=== PATIENT | female | born 1975 | race African-American/Black ===

== ENCOUNTER 2016-10-12 22:48 | Inpatient (IN) | payer SELFPAY ==
[~2016-10-12] VITALS: Ht 165.1 cm; Wt 122.9 kg
[2016-10-12 23:15] VITALS: BP 125/76
[2016-10-12] MEDS ORDERED: Famotidine 20 MG/ 2ML VIAL IVP ONE (23:30)
[2016-10-12 23:55] LABS: APPEARANCE,URINE CLEAR; KETONES,URINE NEGATIVE (NEGATIVE); LEUKOCYTE ESTERASE ,URINE NEGATIVE (NEGATIVE); NITRITE,URINE NEGATIVE (NEGATIVE); PH,URINE 6.5 (4.5-8.0); PROTEIN,URINE NEGATIVE (NEGATIVE); UROBILINOGEN,URINE NORMAL MG/DL (0.0-1.0)
[2016-10-13] VITALS (7 sets, daily range): BP systolic 103–135; BP diastolic 55–93
[2016-10-13 00:28] LABS: BASOPHILS % (AUTO) 0.9 % (0.0-2.0); EOSINOPHILS % (AUTO) 3.6 % (0.0-3.0); LYMPHOCYTES % (AUTO) 32.1 % (20.0-45.0); MEAN CORPUSCULAR HEMOGLOBIN 26.8 PG (27.0-31.0); MEAN CORPUSCULAR HGB CONC 30.2 G/DL (32.0-36.0); MEAN CORPUSCULAR VOLUME 89 FL (80-99); MEAN PLATELET VOLUME 6.7 FL (6.5-10.1); MONOCYTES % (AUTO) 7.2 % (1.0-10.0); NEUTROPHILS % (AUTO) 56.3 % (45.0-75.0); PLATELET COUNT 256 K/UL (150-450); RED BLOOD COUNT 3.94 M/UL (4.20-5.40); RED CELL DISTRIBUTION WIDTH 17.5 % (11.6-14.8); WHITE BLOOD COUNT 6.7 K/UL (4.8-10.8)
[2016-10-13 00:29] LABS: PROTHROMBIN TIME 10.1 SEC (9.30-11.50)
[2016-10-13 00:37] LABS: ALANINE AMINOTRANSFERASE 10 U/L (3-33); ALBUMIN/GLOBULIN RATIO 0.9 (1.0-2.7); ANION GAP 14 (5-15); ASPARTATE AMINO TRANSFERASE 14 U/L (5-40); CALCIUM 9.2 mg/dL (8.6-10.2); CARBON DIOXIDE 24 mEQ/L (20-30); CHLORIDE 102 mEQ/L (98-107); GLOMERULAR FILTRATION RATE > 60 mL/min (>60); HEMOLYSIS 7; LIPASE 14 U/L (< 60); POTASSIUM 4.2 mEQ/L (3.4-4.9); SODIUM 140 mEQ/L (135-145); TOTAL PROTEIN 7.5 g/dL (6.6-8.7)
[2016-10-13] MEDS ORDERED: Lidocaine 1% Plain 30 ml INJ ONE (01:07)
[2016-10-13] MEDS ORDERED: Morphine Sulfate 4mg/ml Inj IVP ONE (02:30)
[2016-10-13] MEDS ORDERED: Pantoprazole Inj IVP ONE (02:30)
--- NOTE | 2016-10-13 03:47 | Emergency Room Report ---
History of Present Illness General Chief Complaint: Gastrointestinal Bleed Source: Patient Present Illness HPI Patient is a 40-year-old female who presented after increased hematemesis. Patient had previously been having some coffee-ground emesis which had changed to a bright red. Patient had prior history of anemia as well as fibroid. Patient prior tubal ligation. Allergies: Coded Allergies: ASPIRIN (Verified Allergy, Unknown, 10/13/16) IBUPROFEN (Verified Allergy, Unknown, 10/13/16) KETOROLAC (Verified Allergy, Unknown, 10/13/16) NSAIDS (NON-STEROIDAL ANTI-INFLAMMA (Verified Allergy, Unknown, 10/12/16) PENICILLINS (Verified Allergy, Unknown, 10/13/16) SHELLFISH DERIVED (Verified Allergy, Unknown, 10/13/16) Patient History Past Medical History: see triage record Last Menstrual Period: 09/22/16 Now: No Reviewed Nursing Documentation: PMH: Agreed, PSxH: Agreed Nursing Documentation-PMH Past Medical History: No Stated History Review of Systems All Other Systems: negative except mentioned in HPI Physical Exam Vital Signs Date Time Temp Pulse Resp B/P Pulse Ox O2 Delivery O2 Flow Rate FiO2 10/12/16 23:06 98.2 86 17 122/78 100 Room Air Sp02 EP Interpretation: reviewed, normal General Appearance: normal inspection, well appearing, no apparent distress, alert, GCS 15 Head: atraumatic ENT: normal ENT inspection, hearing grossly normal, normal voice Neck: normal inspection, full range of motion, supple, no bony tend Respiratory: normal inspection, lungs clear, normal breath sounds, no respiratory distress, no retraction, no wheezing Cardiovascular #1: regular rate, rhythm, no edema Gastrointestinal: normal inspection, normal bowel sounds, non tender, soft, no guarding, no hernia Genitourinary: no CVA tenderness Musculoskeletal: normal inspection, back normal, normal range of motion Neurologic: normal inspection, alert, oriented x3, responsive, retort kiln burner III-XII nml as tested, speech normal Psychiatric: normal inspection, judgement/insight normal, mood/affect normal Skin: normal inspection, normal color, no rash Medical Decision Making Diagnostic Impression: Primary Impression: Gastrointestinal hemorrhage Additional Impression: Anemia ER Course The patient presented for hematemesis. Differential diagnosis included was not limited to Teodora-Aguillon tear, gastritis, ulcer, coagulopathy among others.Because of complexity of patient's case laboratory testing and imaging studies were ordered. The patient states that she was previously transfused. The patient was noted to have some emesis with blood appearing fluid. This did not appear to be jose blood. The patient was noted to have some evidence of anemia. Patient was noted to have poor IV access. A right internal jugular central venous catheter was placed do to inability to place other access. The patient tolerated well. Patient started on IV H2 delia as well as Protonix. Dr. Cally Kim was contacted for inpatient management Labs Test 10/12/16 23:45 10/12/16 23:50 Urine Color Pale yellow Urine Appearance Clear Urine pH 6.5 (4.5-8.0) Urine Specific [place] 1.010 (1.005-1.035) Urine Protein Negative (NEGATIVE) Urine Glucose (UA) Negative (NEGATIVE) Urine Ketones Negative (NEGATIVE) Urine Occult Blood Negative (NEGATIVE) Urine Nitrite Negative (NEGATIVE) Urine Bilirubin Negative (NEGATIVE) Urine Urobilinogen Normal MG/DL (0.0-1.0) Urine Leukocyte Esterase Negative (NEGATIVE) White Blood Count 6.7 K/UL (4.8-10.8) Red Blood Count 3.94 M/UL (4.20-5.40) Hemoglobin 10.6 G/DL (12.0-16.0) Hematocrit 35.1 % (37.0-47.0) Mean Corpuscular Volume 89 FL (80-99) Mean Corpuscular Hemoglobin 26.8 PG (27.0-31.0) Mean Corpuscular Hemoglobin Concent 30.2 G/DL (32.0-36.0) Red Cell Distribution Width 17.5 % (11.6-14.8) Platelet Count 256 K/UL (150-450) Mean Platelet Volume 6.7 FL (6.5-10.1) Neutrophils (%) (Auto) 56.3 % (45.0-75.0) Lymphocytes (%) (Auto) 32.1 % (20.0-45.0) Monocytes (%) (Auto) 7.2 % (1.0-10.0) Eosinophils (%) (Auto) 3.6 % (0.0-3.0) Basophils (%) (Auto) 0.9 % (0.0-2.0) Prothrombin Time 10.1 SEC (9.30-11.50) Prothromb Time International Ratio 1.0 (0.9-1.1) Activated Partial Thromboplast Time 28 SEC (23-33) Sodium Level 140 mEQ/L (135-145) Potassium Level 4.2 mEQ/L (3.4-4.9) Chloride Level 102 mEQ/L (98-107) Carbon Dioxide Level 24 mEQ/L (20-30) Anion Gap 14 (5-15) Blood Urea Nitrogen 14 mg/dL (7-23) Creatinine 1.0 mg/dL (0.5-0.9) Estimat Glomerular Filtration Rate > 60 mL/min (>60) Glucose Level 94 mg/dL (74-106) Calcium Level 9.2 mg/dL (8.6-10.2) Total Bilirubin < 0.2 mg/dL (0.0-1.2) Aspartate Amino Transf (AST/SGOT) 14 U/L (5-40) Alanine Aminotransferase (ALT/SGPT) 10 U/L (3-33) Alkaline Phosphatase 48 U/L (35-104) Total Protein 7.5 g/dL (6.6-8.7) Albumin 3.7 g/dL (3.5-5.2) Globulin 3.8 g/dL Albumin/Globulin Ratio 0.9 (1.0-2.7) Lipase 14 U/L (< 60) Last Vital Signs Date Time Temp Pulse Resp B/P Pulse Ox O2 Delivery O2 Flow Rate FiO2 10/13/16 03:05 98.2 75 17 119/76 100 Room Air Status: unchanged Disposition: ADMITTED INPATIENT Condition: Serious Referrals: NOT CHOSEN IPA/,REFERRING (PCP) Noah Powell Oct 13, 2016 03:47
[2016-10-13] MEDS ORDERED: AMBIEN10 M1 ORAL (06:13)
[2016-10-13] MEDS ORDERED: ATIVAN2 MG ORAL (06:13)
--- NOTE | 2016-10-13 08:15 | Consultation ---
History of Present Illness General Date patient seen: Oct 13, 2016 Chief Complaint: Gastrointestinal Bleed Present Illness Allergies: Coded Allergies: ASPIRIN (Verified Allergy, Unknown, 10/13/16) IBUPROFEN (Verified Allergy, Unknown, 10/13/16) KETOROLAC (Verified Allergy, Unknown, 10/13/16) NSAIDS (NON-STEROIDAL ANTI-INFLAMMA (Verified Allergy, Unknown, 10/12/16) PENICILLINS (Verified Allergy, Unknown, 10/13/16) SHELLFISH DERIVED (Verified Allergy, Unknown, 10/13/16) Medication History Scheduled PRN Lorazepam* (Ativan*), 2 MG ORAL THREE TIMES A DAY PRN for For Anxiety, (Reported ) Zolpidem Tartrate* (Ambien*), 10 MG ORAL HS PRN for Insomnia, (Reported) Patient History Healthcare decision maker Resuscitation status Full Code Advanced Directive on File No Physical Exam Last 24 Hour Vital Signs Date Time Temp Pulse Resp B/P Pulse Ox O2 Delivery O2 Flow Rate FiO2 10/13/16 07:56 97.0 76 18 132/63 100 Room Air 10/13/16 04:00 97.5 75 20 120/93 95 Room Air 10/13/16 04:00 84 10/13/16 03:05 98.2 75 17 119/76 100 Room Air 10/13/16 02:58 98.2 75 17 119/76 100 Room Air 10/13/16 01:05 98.2 82 17 135/77 100 Room Air 10/12/16 23:15 98.2 76 17 125/76 100 Room Air 10/12/16 23:06 98.2 86 17 122/78 100 Room Air Intake and Output 10/12/16 10/13/16 19:00 07:00 Intake Total 2000 ml Balance 2000 ml Intake Oral 0 ml IV Total 1000 ml Other 1000 ml # Voids 3 Laboratory Tests Test 10/12/16 23:45 10/12/16 23:50 Urine Color Pale yellow Urine Appearance Clear Urine pH 6.5 (4.5-8.0) Urine Specific [place] 1.010 (1.005-1.035) Urine Protein Negative (NEGATIVE) Urine Glucose (UA) Negative (NEGATIVE) Urine Ketones Negative (NEGATIVE) Urine Occult Blood Negative (NEGATIVE) Urine Nitrite Negative (NEGATIVE) Urine Bilirubin Negative (NEGATIVE) Urine Urobilinogen Normal MG/DL (0.0-1.0) Urine Leukocyte Esterase Negative (NEGATIVE) White Blood Count 6.7 K/UL (4.8-10.8) Red Blood Count 3.94 M/UL (4.20-5.40) L Hemoglobin 10.6 G/DL (12.0-16.0) L Hematocrit 35.1 % (37.0-47.0) L Mean Corpuscular Volume 89 FL (80-99) Mean Corpuscular Hemoglobin 26.8 PG (27.0-31.0) L Mean Corpuscular Hemoglobin Concent 30.2 G/DL (32.0-36.0) L Red Cell Distribution Width 17.5 % (11.6-14.8) H Platelet Count 256 K/UL (150-450) Mean Platelet Volume 6.7 FL (6.5-10.1) Neutrophils (%) (Auto) 56.3 % (45.0-75.0) Lymphocytes (%) (Auto) 32.1 % (20.0-45.0) Monocytes (%) (Auto) 7.2 % (1.0-10.0) Eosinophils (%) (Auto) 3.6 % (0.0-3.0) H Basophils (%) (Auto) 0.9 % (0.0-2.0) Prothrombin Time 10.1 SEC (9.30-11.50) Prothromb Time International Ratio 1.0 (0.9-1.1) Activated Partial Thromboplast Time 28 SEC (23-33) Sodium Level 140 mEQ/L (135-145) Potassium Level 4.2 mEQ/L (3.4-4.9) Chloride Level 102 mEQ/L (98-107) Carbon Dioxide Level 24 mEQ/L (20-30) Anion Gap 14 (5-15) Blood Urea Nitrogen 14 mg/dL (7-23) Creatinine 1.0 mg/dL (0.5-0.9) H Estimat Glomerular Filtration Rate > 60 mL/min (>60) Glucose Level 94 mg/dL (74-106) Calcium Level 9.2 mg/dL (8.6-10.2) Total Bilirubin < 0.2 mg/dL (0.0-1.2) Aspartate Amino Transf (AST/SGOT) 14 U/L (5-40) Alanine Aminotransferase (ALT/SGPT) 10 U/L (3-33) Alkaline Phosphatase 48 U/L (35-104) Total Protein 7.5 g/dL (6.6-8.7) Albumin 3.7 g/dL (3.5-5.2) Globulin 3.8 g/dL Albumin/Globulin Ratio 0.9 (1.0-2.7) L Lipase 14 U/L (< 60) Height (Feet): 5 Height (Inches): 4.00 Weight (Pounds): 271 Medications Current Medications Medications (Trade) Dose Ordered Sig/Cleopatra Route PRN Reason Start Time Stop Time Status Last Admin Dose Admin Acetaminophen (Tylenol) 650 mg Q4H PRN ORAL Mild Pain/Temp > 100.5 10/13/16 08:00 11/12/16 07:59 Ondansetron HCl 4 mg 4 mg Q6H PRN IVP Nausea & Vomiting 10/13/16 08:00 11/12/16 07:59 Pantoprazole (Protonix) 40 mg DAILY IVP 10/13/16 09:00 11/12/16 08:59 Sodium Chloride (0.45% NS 1000ml) 1,000 ml @ 70 mls/hr [id number] IV 10/13/16 08:00 11/12/16 07:59 Assessment/Plan Assessment/Plan (1) Hematemesis (2) Intractable Abdominal pain (3) Gastrointestinal Hemorrhage Seen dictated. MICHEL KRUEGER Oct 13, 2016 08:15
[2016-10-13] MEDS: Morphine Sulfate 4mg/ml Inj IVP PRN ×2 (08:30→12:32)
[2016-10-13] MEDS ORDERED: Pantoprazole Inj IVP SCH (09:00)
[2016-10-13 09:09] LABS: MEAN CORPUSCULAR HEMOGLOBIN 26.4 PG (27.0-31.0); MEAN CORPUSCULAR HGB CONC 30.8 G/DL (32.0-36.0); MEAN CORPUSCULAR VOLUME 86 FL (80-99); MEAN PLATELET VOLUME 6.7 FL (6.5-10.1); PLATELET COUNT 256 K/UL (150-450); RED CELL DISTRIBUTION WIDTH 17.5 % (11.6-14.8); WHITE BLOOD COUNT 5.3 K/UL (4.8-10.8)
--- NOTE | 2016-10-13 09:14 | Infectious Diseases Prog Note ---
Assessment/Plan Problems: (1) Hematemesis Assessment & Plan: rule out varecies vs pud, continue ppi, no need for prophylactic antibiotics since she dosen't have liver cirrhosis (2) Anemia Assessment & Plan: due to hematamasis , monitor H/H transfuse blood as needed (3) Pain Assessment & Plan: continue pain management as per primary Subjective Allergies: Coded Allergies: ASPIRIN (Verified Allergy, Unknown, 10/13/16) IBUPROFEN (Verified Allergy, Unknown, 10/13/16) KETOROLAC (Verified Allergy, Unknown, 10/13/16) NSAIDS (NON-STEROIDAL ANTI-INFLAMMA (Verified Allergy, Unknown, 10/12/16) PENICILLINS (Verified Allergy, Unknown, 10/13/16) SHELLFISH DERIVED (Verified Allergy, Unknown, 10/13/16) Objective Vital Signs Last 24 Hour Vital Signs Date Time Temp Pulse Resp B/P Pulse Ox O2 Delivery O2 Flow Rate FiO2 10/13/16 07:56 97.0 76 18 132/63 100 Room Air 10/13/16 04:00 97.5 75 20 120/93 95 Room Air 10/13/16 04:00 84 10/13/16 03:05 98.2 75 17 119/76 100 Room Air 10/13/16 02:58 98.2 75 17 119/76 100 Room Air 10/13/16 01:05 98.2 82 17 135/77 100 Room Air 10/12/16 23:15 98.2 76 17 125/76 100 Room Air 10/12/16 23:06 98.2 86 17 122/78 100 Room Air Height (Feet): 5 Height (Inches): 4.00 Weight (Pounds): 271 Laboratory Tests Test 10/12/16 23:45 10/12/16 23:50 10/13/16 08:40 Urine Color Pale yellow Urine Appearance Clear Urine pH 6.5 (4.5-8.0) Urine Specific [place] 1.010 (1.005-1.035) Urine Protein Negative (NEGATIVE) Urine Glucose (UA) Negative (NEGATIVE) Urine Ketones Negative (NEGATIVE) Urine Occult Blood Negative (NEGATIVE) Urine Nitrite Negative (NEGATIVE) Urine Bilirubin Negative (NEGATIVE) Urine Urobilinogen Normal MG/DL (0.0-1.0) Urine Leukocyte Esterase Negative (NEGATIVE) White Blood Count 6.7 K/UL (4.8-10.8) Pending Red Blood Count 3.94 M/UL (4.20-5.40) L Pending Hemoglobin 10.6 G/DL (12.0-16.0) L Pending Hematocrit 35.1 % (37.0-47.0) L Pending Mean Corpuscular Volume 89 FL (80-99) Pending Mean Corpuscular Hemoglobin 26.8 PG (27.0-31.0) L Pending Mean Corpuscular Hemoglobin Concent 30.2 G/DL (32.0-36.0) L Pending Red Cell Distribution Width 17.5 % (11.6-14.8) H Pending Platelet Count 256 K/UL (150-450) Pending Mean Platelet Volume 6.7 FL (6.5-10.1) Pending Neutrophils (%) (Auto) 56.3 % (45.0-75.0) Pending Lymphocytes (%) (Auto) 32.1 % (20.0-45.0) Pending Monocytes (%) (Auto) 7.2 % (1.0-10.0) Pending Eosinophils (%) (Auto) 3.6 % (0.0-3.0) H Pending Basophils (%) (Auto) 0.9 % (0.0-2.0) Pending Prothrombin Time 10.1 SEC (9.30-11.50) Prothromb Time International Ratio 1.0 (0.9-1.1) Activated Partial Thromboplast Time 28 SEC (23-33) Sodium Level 140 mEQ/L (135-145) Potassium Level 4.2 mEQ/L (3.4-4.9) Chloride Level 102 mEQ/L (98-107) Carbon Dioxide Level 24 mEQ/L (20-30) Anion Gap 14 (5-15) Blood Urea Nitrogen 14 mg/dL (7-23) Creatinine 1.0 mg/dL (0.5-0.9) H Estimat Glomerular Filtration Rate > 60 mL/min (>60) Glucose Level 94 mg/dL (74-106) Calcium Level 9.2 mg/dL (8.6-10.2) Total Bilirubin < 0.2 mg/dL (0.0-1.2) Aspartate Amino Transf (AST/SGOT) 14 U/L (5-40) Alanine Aminotransferase (ALT/SGPT) 10 U/L (3-33) Alkaline Phosphatase 48 U/L (35-104) Total Protein 7.5 g/dL (6.6-8.7) Albumin 3.7 g/dL (3.5-5.2) Globulin 3.8 g/dL Albumin/Globulin Ratio 0.9 (1.0-2.7) L Lipase 14 U/L (< 60) Reticulocyte Count Pending Iron Level Pending Unsaturated Iron Binding Pending Ferritin Pending Folate Pending Current Medications Medications (Trade) Dose Ordered Sig/Cleopatra Route PRN Reason Start Time Stop Time Status Last Admin Dose Admin Acetaminophen (Tylenol) 650 mg Q4H PRN ORAL Mild Pain/Temp > 100.5 10/13/16 08:00 11/12/16 07:59 Morphine Sulfate (Morphine Sulfate) 4 mg Q4H PRN IVP severe pain 10/13/16 08:15 10/20/16 08:14 10/13/16 08:30 Ondansetron HCl 4 mg 4 mg Q6H PRN IVP Nausea & Vomiting 10/13/16 08:00 11/12/16 07:59 Pantoprazole (Protonix) 40 mg DAILY IVP 10/13/16 09:00 11/12/16 08:59 10/13/16 08:30 Sodium Chloride (0.45% NS 1000ml) 1,000 ml @ 70 mls/hr [id number] IV 10/13/16 08:00 11/12/16 07:59 10/13/16 08:31 Geoffrey Pope M.D. Oct 13, 2016 09:14
[2016-10-13 09:30] LABS: HEMOLYSIS 2; IRON 43 ug/dL (37-145); TOTAL IRON BINDING CAPACITY 269 ug/dL (250-400)
[2016-10-13 09:38] LABS: FERRITIN 175 ng/mL (13-150)
[2016-10-13 09:39] LABS: EOSINOPHILS % (MANUAL) 3 % (0-3); LYMPHOCYTES % (MANUAL) 38 % (20-45); NEUTROPHILS % (MANUAL) 49 % (45-75); TOTAL CELLS COUNTED 100
[2016-10-13 09:41] LABS: ANISOCYTOSIS 1+; BAND NEUTROPHILS % (MANUAL) 0 % (0-8); BASOPHILS % (MANUAL) 0 % (0-2); HYPOCHROMASIA 1+; PLATELET ESTIMATE ADEQUATE; PLATELET MORPHOLOGY NORMAL
[2016-10-13 10:39] LABS: PATH BLOOD SMEAR/OMC SENT TO PATHOLOGIST; RETICULOCYTE COUNT 0.8 % (0.0-2.0)
[2016-10-13] MEDS ORDERED: HYDROmorphone 1 MG in NS 55 ML IVPB PRN (14:15)
--- NOTE | 2016-10-13 14:26 | Diagnostic Imaging Report ---
Indication: Post central line placement Technique: One view of the chest Comparison: none Findings: Lungs and pleural spaces are clear. Heart size is normal. Right jugular central venous catheter has its tip at the cavoatrial junction. No gross pneumothorax. Impression: Satisfactory central venous catheter placement, no radiographically evident complication No acute process
--- NOTE | 2016-10-13 14:28 | Consultation ---
DATE OF CONSULTATION: 10/13/2016 PAIN MANAGEMENT CONSULTATION CONSULTING PHYSICIAN: Glenn Lerma M.D. REFERRING PHYSICIAN: Cally Alcantara M.D. PHYSICIAN DIE REPAIR MACHINIST: Zafar Pfeiffer CHIEF COMPLAINT: Abdominal pain. HISTORY OF PRESENT ILLNESS: This is a 41-year-old female, who is being seen on the telemetry floor of [facility] for initial comprehensive pain management consultation. The patient reports that she has been having abdominal pain for the past two days. It is a constant, acute pain, rating 8/10, describing throbbing, sharp pain, which she states started causing her to have bouts of vomiting of blood for starting as coffee-ground and now has become bright red, was admitted as per the emergency room doctor. No CT scan of the abdominal area was done, ultrasound under the care of Dr. Alcantara. At this time, we were consulted so that the patient would have adequate pain control while here in the hospital. PAST MEDICAL HISTORY: Fibroid. PAST SURGICAL HISTORY: Gallbladder, appendix, and tubal ligation. MEDICATIONS: She does not take medication at home. ALLERGIES: Toradol, aspirin and penicillin. SOCIAL HISTORY: Denies smoking tobacco, drinking alcohol, or IV drug abuse. REVIEW OF SYSTEMS: Denies rash, fever, chills, sweating, dizziness, drowsiness, blurred vision, sore throat, and change in her weight. No shortness of breath or chest pain. No bowel or bladder incontinence. No dysuria. She is complaining of vomiting blood. PHYSICAL EXAMINATION: GENERAL: Alert, awake, and oriented x3. VITAL SIGNS: Blood pressure 132/86, heart rate is 76, oxygen saturation 100%, respiratory rate is 18, and temperature is 98.0 degrees Fahrenheit. Height is 5 feet 4 inches and weight is pounds. HEENT: PERRLA. NECK: Range of motion is full in all directions. No tenderness of paracervical muscles. No adenopathy. LUNGS: Clear. HEART: Regular. ABDOMEN: Tenderness to palpation. BACK: Range of motion is reduced due to patient's pain and condition with no tenderness to paraspinal muscles and trapezial muscles EXTREMITIES: Upper extremity range of motion is full in all directions. No cyanosis. No clubbing. No edema. Sensory is intact. Reflexes are not obtainable. No adenopathy. ASSESSMENT AND PLAN: This is a 40-year-old female with intractable abdominal pain, hematemesis and gastrointestinal hemorrhage and the patient will be started on morphine 4 mg IV every four hours as needed for severe pain. The patient was discussed with Dr. Lerma and Dr. Lerma concurred. We will follow up the patient. The patient will be started on morphine 4 mg IV every 4 hours as necessary for severe pain. We recommend the patient to have a consultation with hospitality services manager, possible ultrasound of the abdomen or CT scan of the abdomen and pelvis. The patient was discussed with Dr. Lerma and Dr. Lerma concurred. We will follow up the patient. Thank you very much for the courtesy of this consultation Glenn Lerma M.D. ILEANA Pfeiffer DR: Leonel JOB#: [id number] CC: [email or web address]
--- NOTE | 2016-10-13 16:46 | Consultation ---
Consult Note Consult Note Hematology Consultation REQUESTING MD: Maricruz Alamo Reason for consult: ANemia DOS: 10/13/16 ID: Ms. Sulma Marie is a pleasant 40-year-old female who presented to [facility] after progressive hematemesis. Patient had previously been having some coffee- ground emesis which had changed to a bright red. Patient had prior history of anemia as well as fibroid. Patient prior tubal ligation. Hgb currently 9.8, is on PPI. PMHX: Anemia Surgical hx: prior tubal ligation Allergies: ASPIRIN (Verified Allergy, Unknown, 10/13/16) IBUPROFEN (Verified Allergy, Unknown, 10/13/16) KETOROLAC (Verified Allergy, Unknown, 10/13/16) NSAIDS (NON-STEROIDAL ANTI-INFLAMMA (Verified Allergy, Unknown, 10/12/16) PENICILLINS (Verified Allergy, Unknown, 10/13/16) SHELLFISH DERIVED (Verified Allergy, Unknown, 10/13/16) ROS: negative except mentioned in HPI Physical Exam: Vital Signs Date Time Temp Pulse Resp B/P Pulse Ox O2 Delivery O2 Flow Rate FiO2 10/12/16 23:06 98.2 86 17 122/78 100 Room Air General: normal inspection, well appearing, no apparent distress, alert, GCS 15 Head: atraumatic ENT: normal ENT inspection, hearing grossly normal, normal voice Neck: normal inspection, full range of motion, supple, no bony tend Respiratory: normal inspection, lungs clear, normal breath sounds, no respiratory distress, no retraction, no wheezing Cardiovascular #1: regular rate, rhythm, no edema Gastrointestinal: normal inspection, normal bowel sounds, non tender, soft, no guarding, no hernia Genitourinary: no CVA tenderness Musculoskeletal: normal inspection, back normal, normal range of motion Neurologic: normal inspection, alert, oriented x3, responsive, Psychiatric: normal inspection, judgement/insight normal Skin: normal inspection, normal color, no rash Labs: Test 10/12/16 23:45 10/12/16 23:50 10/13/16 08:40 Urine Color Pale yellow Urine Appearance Clear Urine pH 6.5 (4.5-8.0) Urine Specific [place] 1.010 (1.005-1.035) Urine Protein Negative (NEGATIVE) Urine Glucose (UA) Negative (NEGATIVE) Urine Ketones Negative (NEGATIVE) Urine Occult Blood Negative (NEGATIVE) Urine Nitrite Negative (NEGATIVE) Urine Bilirubin Negative (NEGATIVE) Urine Urobilinogen Normal MG/DL (0.0-1.0) Urine Leukocyte Esterase Negative (NEGATIVE) White Blood Count 6.7 K/UL (4.8-10.8) 5.3 K/UL (4.8-10.8) Red Blood Count 3.94 M/UL (4.20-5.40) L 3.70 M/UL (4.20-5.40) L Hemoglobin 10.6 G/DL (12.0-16.0) L 9.8 G/DL (12.0-16.0) L Hematocrit 35.1 % (37.0-47.0) L 31.8 % (37.0-47.0) L Mean Corpuscular Volume 89 FL (80-99) 86 FL (80-99) Mean Corpuscular Hemoglobin 26.8 PG (27.0-31.0) L 26.4 PG (27.0-31.0) L Mean Corpuscular Hemoglobin Concent 30.2 G/DL (32.0-36.0) L 30.8 G/DL (32.0-36.0) L Red Cell Distribution Width 17.5 % (11.6-14.8) H 17.5 % (11.6-14.8) H Platelet Count 256 K/UL (150-450) 256 K/UL (150-450) Mean Platelet Volume 6.7 FL (6.5-10.1) 6.7 FL (6.5-10.1) Neutrophils (%) (Auto) 56.3 % (45.0-75.0) % (45.0-75.0) Lymphocytes (%) (Auto) 32.1 % (20.0-45.0) % (20.0-45.0) Monocytes (%) (Auto) 7.2 % (1.0-10.0) % (1.0-10.0) Eosinophils (%) (Auto) 3.6 % (0.0-3.0) H % (0.0-3.0) Basophils (%) (Auto) 0.9 % (0.0-2.0) % (0.0-2.0) Prothrombin Time 10.1 SEC (9.30-11.50) Prothromb Time International Ratio 1.0 (0.9-1.1) Activated Partial Thromboplast Time 28 SEC (23-33) Sodium Level 140 mEQ/L (135-145) Potassium Level 4.2 mEQ/L (3.4-4.9) Chloride Level 102 mEQ/L (98-107) Carbon Dioxide Level 24 mEQ/L (20-30) Anion Gap 14 (5-15) Blood Urea Nitrogen 14 mg/dL (7-23) Creatinine 1.0 mg/dL (0.5-0.9) H Estimat Glomerular Filtration Rate > 60 mL/min (>60) Glucose Level 94 mg/dL (74-106) Calcium Level 9.2 mg/dL (8.6-10.2) Total Bilirubin < 0.2 mg/dL (0.0-1.2) Aspartate Amino Transf (AST/SGOT) 14 U/L (5-40) Alanine Aminotransferase (ALT/SGPT) 10 U/L (3-33) Alkaline Phosphatase 48 U/L (35-104) Total Protein 7.5 g/dL (6.6-8.7) Albumin 3.7 g/dL (3.5-5.2) Globulin 3.8 g/dL Albumin/Globulin Ratio 0.9 (1.0-2.7) L Lipase 14 U/L (< 60) Differential Total Cells Counted 100 Neutrophils % (Manual) 49 % (45-75) Lymphocytes % (Manual) 38 % (20-45) Monocytes % (Manual) 10 % (1-10) Eosinophils % (Manual) 3 % (0-3) Basophils % (Manual) 0 % (0-2) Band Neutrophils 0 % (0-8) Platelet Estimate Adequate Platelet Morphology Normal Hypochromasia 1+ Anisocytosis 1+ Reticulocyte Count 0.8 % (0.0-2.0) Iron Level 43 ug/dL (37-145) Total Iron Binding Capacity 269 ug/dL (250-400) Percent Iron Saturation 16 % (15-50) Unsaturated Iron Binding 226 ug/dL (112-346) Ferritin 175 ng/mL (13-150) H Folate Pending Assessment: # Anemia 2/2 gastrointestinal hemorrhage # Anemia 2/2 hematemesis - will be evaluated with GI service # Decreased H/H rule out GI bleed # Anemia 2/2 chronic disease Recs: - Anemia w/u has been ordered - Peripheral smear is pending - REtic count is wnl - Pain management recs appreciated - GI recs to follow - Fluids as needed - Hgb goal is >7 León Crowe Oct 13, 2016 16:46
--- NOTE | 2016-10-13 17:08 | General Progress Note ---
Assessment/Plan Assessment/Plan GI CONSULT dictated EGD in AM Thank you Stefanie Subjective Allergies: Coded Allergies: ASPIRIN (Verified Allergy, Unknown, 10/13/16) IBUPROFEN (Verified Allergy, Unknown, 10/13/16) KETOROLAC (Verified Allergy, Unknown, 10/13/16) NSAIDS (NON-STEROIDAL ANTI-INFLAMMA (Verified Allergy, Unknown, 10/12/16) PENICILLINS (Verified Allergy, Unknown, 10/13/16) SHELLFISH DERIVED (Verified Allergy, Unknown, 10/13/16) Objective Last 24 Hour Vital Signs Date Time Temp Pulse Resp B/P Pulse Ox O2 Delivery O2 Flow Rate FiO2 10/13/16 16:00 97.9 79 20 103/55 100 Room Air 10/13/16 12:00 72 10/13/16 11:21 97.3 70 18 120/76 100 Room Air 10/13/16 08:00 73 10/13/16 07:56 97.0 76 18 132/63 100 Room Air 10/13/16 04:00 97.5 75 20 120/93 95 Room Air 10/13/16 04:00 84 10/13/16 03:05 98.2 75 17 119/76 100 Room Air 10/13/16 02:58 98.2 75 17 119/76 100 Room Air 10/13/16 01:05 98.2 82 17 135/77 100 Room Air 10/12/16 23:15 98.2 76 17 125/76 100 Room Air 10/12/16 23:06 98.2 86 17 122/78 100 Room Air Intake and Output 10/12/16 10/13/16 19:00 07:00 Intake Total 2000 ml Balance 2000 ml Intake Oral 0 ml IV Total 1000 ml Other 1000 ml # Voids 3 Laboratory Tests 10/12/16 23:45: Urine Color Pale yellow, Urine Appearance Clear, Urine pH 6.5, Urine Specific [place] 1.010, Urine Protein Negative, Urine Glucose (UA) Negative, Urine Ketones Negative, Urine Occult Blood Negative, Urine Nitrite Negative, Urine Bilirubin Negative, Urine Urobilinogen Normal, Urine Leukocyte Esterase Negative 10/12/16 23:50: White Blood Count 6.7, Red Blood Count 3.94L, Hemoglobin 10.6L, Hematocrit 35.1L , Mean Corpuscular Volume 89, Mean Corpuscular Hemoglobin 26.8L, Mean Corpuscular Hemoglobin Concent 30.2L, Red Cell Distribution Width 17.5H, Platelet Count 256, Mean Platelet Volume 6.7, Neutrophils (%) (Auto) 56.3, Lymphocytes (%) (Auto) 32.1, Monocytes (%) (Auto) 7.2, Eosinophils (%) (Auto) 3.6H, Basophils (%) (Auto) 0.9, Prothrombin Time 10.1, Prothromb Time International Ratio 1.0, Activated Partial Thromboplast Time 28, Sodium Level 140, Potassium Level 4.2, Chloride Level 102, Carbon Dioxide Level 24, Anion Gap 14, Blood Urea Nitrogen 14, Creatinine 1.0H, Estimat Glomerular Filtration Rate > 60, Glucose Level 94, Calcium Level 9.2, Total Bilirubin < 0.2, Aspartate Amino Transf (AST/SGOT) 14, Alanine Aminotransferase (ALT/SGPT) 10, Alkaline Phosphatase 48, Total Protein 7.5, Albumin 3.7, Globulin 3.8, Albumin/ Globulin Ratio 0.9L, Lipase 14 10/13/16 08:40: White Blood Count 5.3, Red Blood Count 3.70L, Hemoglobin 9.8L, Hematocrit 31.8L , Mean Corpuscular Volume 86, Mean Corpuscular Hemoglobin 26.4L, Mean Corpuscular Hemoglobin Concent 30.8L, Red Cell Distribution Width 17.5H, Platelet Count 256, Mean Platelet Volume 6.7, Neutrophils (%) (Auto) , Lymphocytes (%) (Auto) , Monocytes (%) (Auto) , Eosinophils (%) (Auto) , Basophils (%) (Auto) , Differential Total Cells Counted 100, Neutrophils % ( Manual) 49, Lymphocytes % (Manual) 38, Monocytes % (Manual) 10, Eosinophils % ( Manual) 3, Basophils % (Manual) 0, Band Neutrophils 0, Platelet Estimate Adequate, Platelet Morphology Normal, Hypochromasia 1+, Anisocytosis 1+, Reticulocyte Count 0.8, Iron Level 43, Total Iron Binding Capacity 269, Percent Iron Saturation 16, Unsaturated Iron Binding 226, Ferritin 175H, Folate [Pending ] Height (Feet): 5 Height (Inches): 4.00 Weight (Pounds): 271 STEFANIEYOVANYSUKHDEV Oct 13, 2016 17:08
[2016-10-13] MEDS: HYDROmorphone 1mg/NS 50ml IVPB 50 ML IVPB PRN ×2 (17:36→21:51)
--- NOTE | 2016-10-13 19:28 | History and Physical Report ---
DATE OF ADMISSION: 10/13/2016 HISTORY OF PRESENT ILLNESS: The patient presents for upper gastrointestinal bleeding. The patient states that she has been having abdominal pain for the past two days and vomiting blood for two days and blood in the stool as well that is why she is admitted. The patient denies history of peptic ulcer disease. Denies hemorrhoids history as well or any colon cancer. PAST MEDICAL HISTORY: Obesity, gastroesophageal reflux disease, anxiety, and insomnia. PAST SURGICAL HISTORY: Cholecystectomy, appendectomy, tubal ligation. MEDICATIONS: Lorazepam and Ambien p.r.n. ALLERGIES: Aspirin, penicillin, and Toradol. SOCIAL HISTORY: Denies history of smoking, alcohol, or illicit drugs FAMILY HISTORY: Noncontributory. No history of cancer. REVIEW OF SYSTEMS: HEENT: Denies headache. Respiratory: Denies shortness of breath. Denies cough. Cardiovascular: Denies chest pain. No orthopnea. Gastrointestinal: Report vomiting blood, abdominal pain as well as blood in the stool for the past two days. Denies constipation, hemorrhoids, or any peptic ulcer disease. Extremities: Denies pain in the lower extremities. Central Nervous System: Denies change in vision or speech pattern. PHYSICAL EXAMINATION: VITAL SIGNS: Temperature 98.2, pulse 82, blood pressure 135/77. HEENT: PERRLA. NECK: Supple. No lymphadenopathy. CHEST: Clear to auscultation. GASTROINTESTINAL: Soft. Epigastric tenderness. No rebound. No organomegaly. The patient is obese. EXTREMITIES: A 1+ edema. Reflexes are equal on both sides. Able to move all four extremities. LABORATORY DATA: WBC 6.7, hemoglobin 10.6, and platelets 256,000. Sodium 140, potassium 4.2, BUN 14, creatinine 1, and glucose 94. ASSESSMENT: Upper gastrointestinal bleed. The patient vomited blood as well as lower gastrointestinal bleeding. I have asked Dr. Watts and Dr. Crowe to see the patient for etiology of anemia and Dr. Lerma will be in-charge of pain control and Dr. Lenz because the patient seems to be dehydrated at this point. Dr. Pope will see the patient to rule out any infectious etiology causing diverticulitis. Cally Alcantara M.D. DR: Liz JOB#: [id number] CC:
[2016-10-13] MEDS ORDERED: Zolpidem 5mg tab ORAL PRN (19:45)
[2016-10-13] MEDS: LORazepam 1mg tab ORAL PRN (21:51)
[2016-10-13] MEDS: Pantoprazole Inj IVP SCH (21:52)
--- NOTE | 2016-10-13 22:58 | Consultation ---
DATE OF CONSULTATION: 10/13/2016 INFECTIOUS DISEASES CONSULTATION: CONSULTING PHYSICIAN: Geoffrey Pope M.D. ATTENDING PHYSICIAN: Cally Alcantara M.D. REFERRING PHYSICIAN: Cally Alcantara M.D. REQUESTING PHYSICIAN: Cally Alcantara M.D. REASONS FOR CONSULTATION: Hematemesis, gastrointestinal bleeding, and recommendation for antibiotics prophylaxis. HISTORY OF PRESENT ILLNESS: The patient is a 40-year-old obese female with no significant past medical history, presented to the emergency room with abdominal pain for two to three days and vomiting. The patient's pain started all of sudden, was 8/10, localized on the side of her abdomen, mainly on the left side, upper quadrant. Her pain was fluctuating, but constant. She is not aware of anything that made it worse, but it got better when she vomited. She had several episodes of coffee-ground emesis at home. She denied using any recent NSAID or aspirin. She never had any previous abdominal pain like this before or previous stomach bleeding or peptic ulcer disease. The patient was found to be anemic. She had temperature of 98.2 degrees. She was admitted to the hospital for further evaluation and management and I was consulted by the primary provider for possible antibiotic prophylaxis due to hematemesis. PAST MEDICAL HISTORY: Negative. PAST SURGICAL HISTORY: Negative. ALLERGIES: She is allergic to aspirin, ibuprofen, ketorolac, NSAID, penicillin, and shell fish. MEDICATIONS: She received pantoprazole, Zofran, and sodium chloride. FAMILY HISTORY: Noncontributory. SOCIAL HISTORY: She lives with her family and unemployed. She denied using any drugs, tobacco, or alcohol. REVIEW OF SYSTEMS: A 12-point of system review were all negative apart from the one, I mentioned above in my History and Physical. PHYSICAL EXAMINATION: VITAL SIGNS: Temperature is 97.9 degrees, pulse 79, respirations 20, blood pressure 103/55, and saturation 100% on room air. GENERAL: This is a middle-aged female, obese, lying in bed, and comfortable, not in distress. HEENT: Normocephalic and atraumatic. Pupils are reactive to light equally. Moist oral mucosa. No exudate. NECK: Supple. No lymphadenopathy. CARDIOVASCULAR: Regular rate and rhythm. No murmur. LUNGS: Clear bilaterally. Diminished breathing sounds at the bases. No wheezing or rhonchi. ABDOMEN: Soft, obese, and tender in the left upper quadrant and left side. No rebound. No organomegaly. No ascites. EXTREMITIES: No edema or cyanosis. LABORATORY DATA: CBC showed white count of 5.3, hemoglobin of 9.8, and platelet count 256,000. BUN is 14 and creatinine of 1. Urinalysis is negative for infection. IMAGING DATA: Chest x-ray showed no acute process. ASSESSMENT AND PLAN: 1. Hematemesis, rule out varices versus peptic ulcer disease. Continue proton-pump inhibitor. No need for antibiotic prophylaxis at this point since she does not have liver cirrhosis. Further management as per Gastroenterology. 2. Anemia due to blood loss and hematemesis. Monitor hemoglobin and hematocrit. Transfuse blood as needed. Monitor hemoglobin and hematocrit. 3. Abdominal pain, rule out abscess. We will order CT scan of the abdomen and pelvis for further evaluation and management. Geoffrey Pope M.D. DR: Yuliana JOB#: [id number] CC:
--- NOTE | 2016-10-13 23:08 | Consultation ---
DATE OF CONSULTATION: 10/13/2016 GASTROLOGY CONSULTATION CHIEF COMPLAINT: I was asked to see this patient for hematemesis. HISTORY OF PRESENT ILLNESS: The patient is a 40-year-old woman with two days of nausea and vomiting, which initially was clear and then became dark reddish today. She has brown stools. This the first time she has gastrointestinal bleeding and has not had any endoscopy in the past. She has had no GI history in the past. PAST MEDICAL HISTORY: History of fibroids status post tubal ligation. MEDICATIONS: See chart for details. SOCIAL HISTORY: The patient has a daughter who is at bedside with her. FAMILY HISTORY: Noncontributory. REVIEW OF SYSTEMS: Negative. PHYSICAL EXAMINATION: GENERAL: The patient is an obese woman, seen in her room. HEENT: Normocephalic and atraumatic. Sclerae anicteric. Oropharynx clear. NECK: Supple. CHEST: Clear to auscultation. CARDIOVASCULAR: Regular rhythm and rate. ABDOMEN: Soft with some left upper quadrant tenderness. EXTREMITIES: No edema. LABORATORY AND DIAGNOSTIC DATA: Laboratory data was noted. ASSESSMENT: This patient presents with nausea, vomiting, and hematemesis. I will schedule her for endoscopy tomorrow. The indications risks, alternatives, and possible complications were explained and an informed consent was obtained. She received proton pump inhibitor twice daily for now. RECOMMENDATIONS: Per above discussion and per orders written in the chart. Thank you for asking me to participate in care of this patient. Price Watts M.D. DR: XAVI JOB#: [id number] CC:
--- NOTE | 2016-10-13 23:18 | Cardiology Report ---
APPROVED REPORT EKG Measurement Heart [id number] Normal sinus rhythm Normal ECG
[2016-10-14] VITALS (10 sets, daily range): BP systolic 109–139; BP diastolic 59–87
--- NOTE | 2016-10-14 01:47 | Consultation ---
DATE OF CONSULTATION: HISTORY OF PRESENT ILLNESS: This is a 40-year-old female with a history of multiple medical problems, including GERD, obesity, anxiety, and insomnia, and has been admitted to the hospital for medical stabilization. Psychiatry was consulted. The patient presented with anxiety. During the evaluation, the patient endorses anxiety were concerned about her current medical condition. Denied any depressive, manic, or psychotic symptoms. No suicidal or homicidal ideation. PAST PSYCHIATRIC HISTORY: Diagnosed with anxiety disorder as well as insomnia, has been treated with lorazepam and Ambien as needed. PAST MEDICAL HISTORY: Cholecystectomy, appendectomy and tubal ligation. MEDICATION: At home verapamil and Ambien. ALLERGIES: Aspirin, penicillin, and Toradol. SUBSTANCE ABUSE HISTORY: No history of illicit drug use or alcohol. FAMILY HISTORY: Noncontributory. MENTAL STATUS EXAMINATION: The patient is alert and oriented x3. Mood is anxious. Affect is constricted. Congruent with mood. Thought process is concrete. Thought content, there is no suicidal or homicidal ideations. No delusions. Insight and judgment is good. ASSESSMENT: AXIS I: Anxiety disorder. AXIS II: Deferred. AXIS III: As above. AXIS IV: Moderate. AXIS V: 55. PLAN: 1. The patient will be started on Ativan 1 mg every 6 hours as needed for anxiety and agitation. 2. Ambien 5 mg by mouth nightly as needed for insomnia. Luis Alberto Watson M.D. DR: Hever JOB#: [id number] CC:
[2016-10-14] MEDS: HYDROmorphone 1mg/NS 50ml IVPB 50 ML IVPB PRN ×2 (02:03→06:22)
[2016-10-14] MEDS: LORazepam 1mg tab ORAL PRN ×2 (06:50→17:42)
--- NOTE | 2016-10-14 08:19 | General Progress Note ---
Assessment/Plan Assessment/Plan (1) Hematemesis (2) Intractable Abdominal pain (3) Gastrointestinal Hemorrhage The patient will be increased to Dilaudid 2mg IVPB Q4H PRN severe pain. Scheduled for EGD with GI later this morning. The patient was discussed with Dr. Lerma and Dr. Lerma concurred. Subjective Date patient seen: Oct 14, 2016 Time patient seen: 07:45 - am Allergies: Coded Allergies: ASPIRIN (Verified Allergy, Unknown, 10/13/16) IBUPROFEN (Verified Allergy, Unknown, 10/13/16) KETOROLAC (Verified Allergy, Unknown, 10/13/16) NSAIDS (NON-STEROIDAL ANTI-INFLAMMA (Verified Allergy, Unknown, 10/12/16) PENICILLINS (Verified Allergy, Unknown, 10/13/16) SHELLFISH DERIVED (Verified Allergy, Unknown, 10/13/16) Subjective REVIEW OF SYSTEMS: Denies rash, fever, chills, sweating, dizziness, drowsiness, blurred vision, sore throat, and change in her weight. No shortness of breath or chest pain. No bowel or bladder incontinence. No dysuria. She is complaining of vomiting blood. SUBJECTIVE: Pt continues to c/o severe pain with claims of one bout of vomiting blood last night at 2am, no nurse documentation of vomiting, even while on the Dilaudid 1mg IVPB which was changed from the morphine. She will be going for EGD with GI later this morning. Objective Last 24 Hour Vital Signs Date Time Temp Pulse Resp B/P Pulse Ox O2 Delivery O2 Flow Rate FiO2 10/14/16 04:27 98.2 90 20 113/75 95 Room Air 10/14/16 04:00 91 10/14/16 00:00 81 10/14/16 00:00 98.0 77 20 110/82 97 Room Air 10/13/16 20:00 82 10/13/16 20:00 98.4 82 19 123/74 94 Room Air 10/13/16 16:00 97.9 79 20 103/55 100 Room Air 10/13/16 16:00 80 10/13/16 12:00 72 10/13/16 11:21 97.3 70 18 120/76 100 Room Air Intake and Output 10/13/16 10/14/16 19:00 07:00 Intake Total 420 ml 1140 ml Output Total 1 ml Balance 420 ml 1139 ml Intake Oral 480 ml IV Total 420 ml 660 ml Output Urine Total 1 ml # Voids 3 # Bowel Movements 1 Laboratory Tests 10/13/16 08:40: White Blood Count 5.3, Red Blood Count 3.70L, Hemoglobin 9.8L, Hematocrit 31.8L , Mean Corpuscular Volume 86, Mean Corpuscular Hemoglobin 26.4L, Mean Corpuscular Hemoglobin Concent 30.8L, Red Cell Distribution Width 17.5H, Platelet Count 256, Mean Platelet Volume 6.7, Neutrophils (%) (Auto) , Lymphocytes (%) (Auto) , Monocytes (%) (Auto) , Eosinophils (%) (Auto) , Basophils (%) (Auto) , Differential Total Cells Counted 100, Neutrophils % ( Manual) 49, Lymphocytes % (Manual) 38, Monocytes % (Manual) 10, Eosinophils % ( Manual) 3, Basophils % (Manual) 0, Band Neutrophils 0, Platelet Estimate Adequate, Platelet Morphology Normal, Hypochromasia 1+, Anisocytosis 1+, Reticulocyte Count 0.8, Iron Level 43, Total Iron Binding Capacity 269, Percent Iron Saturation 16, Unsaturated Iron Binding 226, Ferritin 175H, Folate [Pending ] Height (Feet): 5 Height (Inches): 5.00 Weight (Pounds): 271 Objective GENERAL: Alert, awake, and oriented x3. HEENT: PERRLA. NECK: Range of motion is full in all directions. No tenderness of paracervical muscles. No adenopathy. LUNGS: Clear. HEART: Regular. ABDOMEN: Tenderness to palpation. BACK: Range of motion is reduced due to patient's pain and condition with no tenderness to paraspinal muscles and trapezial muscles EXTREMITIES: No cyanosis. No clubbing. No edema. NEURO: No changes. MICHEL KRUEGER Oct 14, 2016 08:19
[2016-10-14] MEDS: Pantoprazole Inj IVP SCH ×2 (08:22→20:32)
[2016-10-14] MEDS ORDERED: Propofol 10mg/ml 20ml IV ONE (09:00)
[2016-10-14] MEDS ORDERED: Dexamethasone 4mg/ml vial ONE (09:00)
[2016-10-14] MEDS ORDERED: NS 550ML IV ONE (09:07)
--- NOTE | 2016-10-14 09:08 | Pre-Procedure Note/Attestation ---
Pre-Procedure Note/Attestation Complete Prior to Procedure Planned Procedure: not applicable Procedure Narrative: EGD Indications for Procedure Pre-Operative Diagnosis: UGIB Attestation I attest that I discussed the nature of the procedure; its benefits; risks and complications; and alternatives (and the risks and benefits of such alternatives ), prior to the procedure, with the patient (or the patient's legal customer loyalty representative). I attest that, if there was a reasonable possibility of needing a blood transfusion, the patient (or the patient's legal customer loyalty representative) was given the [facility] standardized written summary, pursuant to the [employer] [employer] Blood Safety Act ([place] Health and Safety Code # 1645, as amended). I attest that I re-evaluated the patient just prior to the surgery and that there has been no change in the patient's H&P, except as documented below: CHARISMA WORLEY Oct 14, 2016 09:08
--- NOTE | 2016-10-14 09:13 | Endoscopy Procedure Note ---
Endoscopy Procedure Note Indication for Procedure: UGIB Procedures Performed: EGD Operative Findings/Diagnosis: mild yonatan Specimen: yes Pt Tolerated Procedure Well: Yes Estimated Blood Loss: none Anesthesiologist: Meg Anesthesia: MAC Medication Given: see anesthesia record Implant(s) used?: No 50 yrs or older w/o bx or poly: Not Applicable 10yrs. F/U not recommended: Not Applicable If not recommended, why?: CHARISMA WORLEY Oct 14, 2016 09:13
[2016-10-14] MEDS ORDERED: Norco 5mg/325mg tab ORAL PRN (09:15)
[2016-10-14] MEDS ORDERED: Hydromorphone 0.5mg/0.5ml inj IVP PRN (09:15)
[2016-10-14] MEDS ORDERED: fentaNYL 100 mcg/2 mL IV PRN (09:15)
--- NOTE | 2016-10-14 09:16 | Brief Operative Note ---
Immediate Post Operative Note Operative Note Chief Complaint: UGIB Pre-op Diagnosis: UGIB Procedure: EGD/Bx Post-op Diagnosis: mild yonatan Surgeon: reina Anesthesiologist: piper Anesthesia: moderate sedation Specimen: yes Complications: none Condition: stable Estimated Blood Loss: none Drains: none Implant(s) used?: No CHARISMA WORLEY Oct 14, 2016 09:16
--- NOTE | 2016-10-14 09:19 | Anethesia Preoperative Eval ---
Anesthesia Pre-op PMH/ROS General Date of Evaluation: Oct 14, 2016 Time of Evaluation: 09:00 Anesthesiologist: Marta ASA Score: ASA 3 Mallampati Score Class I : Soft palate, uvula, fauces, pillars visible Class II: Soft palate, uvula, fauces visible Class III: Soft palate, base of uvula visible Class IV: Only hard plate visible Mallampati Classification: Class II Surgeon: Stefanie Diagnosis: GI Bleed Surgical Procedure: EGD Family History: no anesthesia problems Allergies: Coded Allergies: ASPIRIN (Verified Allergy, Unknown, 10/13/16) IBUPROFEN (Verified Allergy, Unknown, 10/13/16) KETOROLAC (Verified Allergy, Unknown, 10/13/16) NSAIDS (NON-STEROIDAL ANTI-INFLAMMA (Verified Allergy, Unknown, 10/12/16) PENICILLINS (Verified Allergy, Unknown, 10/13/16) SHELLFISH DERIVED (Verified Allergy, Unknown, 10/13/16) Past Medical History Cardiovascular: Reports: HTN Pulmonary: Denies: COPD, [place], asthma, other Gastrointestinal/Genitourinary: Reports: GERD Neurologic/Psychiatric: Denies: CVA, TIA, dementia, depression/anxiety, other Endocrine: Denies: DM, hypothyroidism, other, steroids HEENT: Denies: [place] (L), T[place] (R), cataract (L), cataract (R), glaucoma, other Other: obesity Anesthesia Pre-op Phys. Exam Physician Exam Last Vital Signs Date Time Temp Pulse Resp B/P Pulse Ox O2 Delivery O2 Flow Rate FiO2 10/14/16 04:27 98.2 90 20 113/75 95 Room Air Constitutional: NAD Neurologic: CN 2-12 intact Cardiovascular: RRR Respiratory: CTA Airway Exam Mallampati Score: Class II ARNOLDO HUNTLEY M.D. Oct 14, 2016 09:19
--- NOTE | 2016-10-14 09:25 | Immediate Post-Op Evaluation ---
Immediate Post-Op Evalulation Immediate Post-Op Evalulation Procedure: EGD Date of Evaluation: Oct 14, 2016 Time of Evaluation: 09:30 IV Fluids: 300 Blood Products: 0 Estimated Blood Loss: 0 Urinary Output: 0 Blood Pressure Systolic: 130 Blood Pressure Diastolic: 70 Pulse Rate: 90 Respiratory Rate: 20 O2 Sat by Pulse Oximetry: 99 Temperature (Fahrenheit): 98 Pain Score (1-10): 2 Nausea: No Vomiting: No Complications na Patient Status: awake Hydration Status: adequate Given Within 1 Hr of Incision: ARNOLDO Gonzalez M.D. Oct 14, 2016 09:25
--- NOTE | 2016-10-14 09:26 | 48 Hour Post Anesthesia Eval ---
Post Anesthesia Evaluation Procedure: EGD Date of Evaluation: Oct 14, 2016 Time of Evaluation: 10:00 Blood Pressure Systolic: 120 0: 60 Pulse Rate: 86 Respiratory Rate: 20 Temperature (Fahrenheit): 98 O2 Sat by Pulse Oximetry: 97 Airway: patent Nausea: No Vomiting: No Pain Intensity: 2 Hydration Status: adequate Cardiopulmonary Status: na Mental Status/LOC: patient returned to baseline Follow-up Care/Observations: na Post-Anesthesia Complications: na Follow-up care needed: N/A ARNOLDO HUNTLEY M.D. Oct 14, 2016 09:26
[2016-10-14] MEDS: HYDROmorphone 2 MG in NS 55 ML SUBQ PRN ×3 (10:49→19:15)
--- NOTE | 2016-10-14 11:51 | General Progress Note ---
Assessment/Plan Problem List: (1) Gastrointestinal hemorrhage ICD Codes: K92.2 - Gastrointestinal hemorrhage, unspecified SNOMED: 20760787 (2) Hematemesis ICD Codes: K92.0 - Hematemesis SNOMED: 5617114 (3) Anemia ICD Codes: D64.9 - Anemia, unspecified SNOMED: 241842353 (4) Pain ICD Codes: R52 - Pain, unspecified SNOMED: 26986480 Status: progressing Assessment/Plan afebrile no more bleeding dr huang didtnt find anything significant on egd dc planning moniter for gi bleeding Subjective ROS Limited/Unobtainable: Yes Constitutional: Reports: no symptoms Allergies: Coded Allergies: ASPIRIN (Verified Allergy, Unknown, 10/13/16) IBUPROFEN (Verified Allergy, Unknown, 10/13/16) KETOROLAC (Verified Allergy, Unknown, 10/13/16) NSAIDS (NON-STEROIDAL ANTI-INFLAMMA (Verified Allergy, Unknown, 10/12/16) PENICILLINS (Verified Allergy, Unknown, 10/13/16) SHELLFISH DERIVED (Verified Allergy, Unknown, 10/13/16) Objective Last 24 Hour Vital Signs Date Time Temp Pulse Resp B/P Pulse Ox O2 Delivery O2 Flow Rate FiO2 10/14/16 09:40 81 18 130/69 100 Room Air 10/14/16 09:35 79 18 137/73 100 Room Air 10/14/16 09:30 98.0 80 18 129/65 99 Simple Mask 5.0 10/14/16 09:26 86 20 97 10/14/16 09:25 90 20 99 10/14/16 08:00 97.2 86 18 109/59 98 Room Air 10/14/16 07:44 88 10/14/16 04:27 98.2 90 20 113/75 95 Room Air 10/14/16 04:00 91 10/14/16 00:00 81 10/14/16 00:00 98.0 77 20 110/82 97 Room Air 10/13/16 20:00 82 10/13/16 20:00 98.4 82 19 123/74 94 Room Air 10/13/16 16:00 97.9 79 20 103/55 100 Room Air 10/13/16 16:00 80 10/13/16 12:00 72 Intake and Output 10/13/16 10/14/16 18:59 06:59 Intake Total 420 ml 1070 ml Output Total 1 ml Balance 420 ml 1069 ml Intake Oral 480 ml IV Total 420 ml 590 ml Output Urine Total 1 ml # Voids 3 # Bowel Movements 1 Height (Feet): 5 Height (Inches): 5.00 Weight (Pounds): 271 EENT: PERRL/EOMI Neck: supple Cardiovascular: normal rate Respiratory/Chest: lungs clear Abdomen: soft Cally Alcantara MD Oct 14, 2016 11:51
--- NOTE | 2016-10-14 16:10 | Infectious Diseases Prog Note ---
Assessment/Plan Problems: (1) Hematemesis Assessment & Plan: had EGD, showed gastritis , with biopsy . continue ppi, no need for prophylactic antibiotics since she dosen't have liver cirrhosis (2) Anemia Assessment & Plan: due to hematamasis , monitor H/H transfuse blood as needed (3) Pain Assessment & Plan: continue pain management as per primary Subjective Constitutional: Reports: no symptoms HEENT: Reports: no symptoms Respiratory: Reports: no symptoms Breasts: Reports: no symptoms Cardiovascular: Reports: no symptoms Gastrointestinal/Abdominal: Reports: no symptoms Genitourinary: Reports: no symptoms Neurologic: Reports: other - anxiety Psychiatric: Reports: no symptoms Skin: Reports: no symptoms Allergies: Coded Allergies: ASPIRIN (Verified Allergy, Unknown, 10/13/16) IBUPROFEN (Verified Allergy, Unknown, 10/13/16) KETOROLAC (Verified Allergy, Unknown, 10/13/16) NSAIDS (NON-STEROIDAL ANTI-INFLAMMA (Verified Allergy, Unknown, 10/12/16) PENICILLINS (Verified Allergy, Unknown, 10/13/16) SHELLFISH DERIVED (Verified Allergy, Unknown, 10/13/16) Objective Vital Signs Last 24 Hour Vital Signs Date Time Temp Pulse Resp B/P Pulse Ox O2 Delivery O2 Flow Rate FiO2 10/14/16 13:25 96.8 76 18 139/69 97 Room Air 10/14/16 12:18 83 10/14/16 12:00 97.6 76 18 139/69 97 Room Air 10/14/16 09:40 81 18 130/69 100 Room Air 10/14/16 09:35 79 18 137/73 100 Room Air 10/14/16 09:30 98.0 80 18 129/65 99 Simple Mask 5.0 10/14/16 09:26 86 20 97 10/14/16 09:25 90 20 99 10/14/16 08:00 97.2 86 18 109/59 98 Room Air 10/14/16 07:44 88 10/14/16 04:27 98.2 90 20 113/75 95 Room Air 10/14/16 04:00 91 10/14/16 00:00 81 10/14/16 00:00 98.0 77 20 110/82 97 Room Air 10/13/16 20:00 82 10/13/16 20:00 98.4 82 19 123/74 94 Room Air Height (Feet): 5 Height (Inches): 5.00 Weight (Pounds): 271 General Appearance: WD/WN, no acute distress HEENT: normocephalic, atraumatic, anicteric, mucous membranes moist Respiratory/Chest: chest wall non-tender, lungs clear, normal breath sounds, no respiratory distress, no accessory muscle use Cardiovascular: normal peripheral pulses, normal rate, regular rhythm, no gallop/murmur, no JVD Abdomen: normal bowel sounds, soft, non tender, no organomegaly, non distended , no mass, no scars Extremities: no cyanosis, no clubbing Skin: no rash, no lesions Current Medications Medications (Trade) Dose Ordered Sig/Cleopatra Route PRN Reason Start Time Stop Time Status Last Admin Dose Admin Acetaminophen (Tylenol) 650 mg Q4H PRN ORAL Mild Pain/Temp > 100.5 10/13/16 08:00 11/12/16 07:59 Clonazepam (KlonoPIN) 0.5 mg QHS ORAL 10/14/16 21:00 10/21/16 20:59 Hydromorphone HCl/ Sodium Chloride (Dilaudid/Sodium Chloride) 56 ml @ 224 mls/hr Q4H PRN SUBQ Severe Pain (Pain Scale 7-10) 10/14/16 08:15 10/21/16 08:14 10/14/16 15:09 Lorazepam (Ativan) 1 mg Q6H PRN ORAL For Anxiety 10/13/16 19:45 10/20/16 19:44 10/14/16 06:50 Mirtazapine (Remeron) 7.5 mg BEDTIME ORAL 10/14/16 21:00 11/13/16 20:59 Ondansetron HCl 4 mg 4 mg Q6H PRN IVP Nausea & Vomiting 10/13/16 08:00 11/12/16 07:59 Pantoprazole 40 mg 40 mg EVERY 12 HOURS IVP 10/13/16 21:00 11/12/16 20:59 10/14/16 08:22 Sodium Chloride (0.45% NS 1000ml) 1,000 ml @ 70 mls/hr [id number] IV 10/13/16 08:00 11/12/16 07:59 10/14/16 12:47 Geoffrey Pope M.D. Oct 14, 2016 16:10
[2016-10-14] MEDS ORDERED: clonazePAM 0.5mg tab ORAL SCH (21:00)
--- NOTE | 2016-10-14 23:28 | Procedure Note ---
DATE OF PROCEDURE: 10/14/2016 PROCEDURE: Upper gastrointestinal endoscopy with biopsy. SURGEON: Price Watts M.D. ANESTHESIA: Please see the separate anesthesiologist notes for details. PRE-ENDOSCOPIC DIAGNOSIS: Upper gastrointestinal bleeding. POST-ENDOSCOPIC DIAGNOSIS: Gastritis. DESCRIPTION OF PROCEDURE: The procedure, its risks, indications, and alternatives were explained and informed consent was obtained. The endoscope was introduced through the oropharynx and advanced to the duodenum. The endoscope was withdrawn and the mucosa was examined carefully. Examination of the upper gastric mucosa revealed gastritis in the antrum. Biopsies were sent to pathology for review. There were no ulcers or active bleeding. The endoscope was removed, and the patient was sent to recovery in good condition. COMPLICATIONS: None. RECOMMENDATIONS: 1. Follow up biopsy results. 2. Resume oral diet. 3. Discharge plan. Price Watts M.D. DR: EDSON JOB#: [id number] CC:
[2016-10-15] VITALS: BP 146/90
[2016-10-15] MEDS: HYDROmorphone 2 MG in NS 55 ML SUBQ PRN ×2
[2016-10-15 04:00] VITALS: BP 140/81
[2016-10-15] MEDS: HYDROmorphone 2 MG in NS 55 ML IVPB PRN ×2 (04:37→08:40)
[2016-10-15] MEDS: LORazepam 1mg tab ORAL PRN ×2 (07:45)
[2016-10-15 08:00] VITALS: BP 125/66
[2016-10-15] MEDS: Pantoprazole Inj IVP SCH (08:35)
--- NOTE | 2016-10-15 09:26 | General Progress Note ---
Assessment/Plan Assessment/Plan (1) Hematemesis (2) Intractable Abdominal pain (3) Gastrointestinal Hemorrhage (4) Gastritis The patient will be discontinued off the Dilaudid and started on tramadol 50mg PO 1 tab Q4H PRN moderate pain. RX for Tramadol 50mg 15 tabs written for pt in anticipation for discharge. She was advised to f/u with her PMD when discharged. The patient was discussed with Dr. Lerma and Dr. Lerma concurred. Subjective Date patient seen: Oct 15, 2016 Time patient seen: 08:30 - am Allergies: Coded Allergies: ASPIRIN (Verified Allergy, Unknown, 10/13/16) IBUPROFEN (Verified Allergy, Unknown, 10/13/16) KETOROLAC (Verified Allergy, Unknown, 10/13/16) NSAIDS (NON-STEROIDAL ANTI-INFLAMMA (Verified Allergy, Unknown, 10/12/16) PENICILLINS (Verified Allergy, Unknown, 10/13/16) SHELLFISH DERIVED (Verified Allergy, Unknown, 10/13/16) Subjective REVIEW OF SYSTEMS: Denies rash, fever, chills, sweating, dizziness, drowsiness, blurred vision, sore throat, and change in her weight. No shortness of breath or chest pain. No bowel or bladder incontinence. No dysuria. SUBJECTIVE: Pt is s/p EGD which found Gastritis no active bleed or ulcer seen. Her pain has reduced and I d/w pt about discontinuing the Dilaudid and starting tramadol. She understands and agrees. Pt is also looking forward to being discharged home. Objective Last 24 Hour Vital Signs Date Time Temp Pulse Resp B/P Pulse Ox O2 Delivery O2 Flow Rate FiO2 10/15/16 08:00 97.3 82 20 125/66 100 Room Air 10/15/16 04:00 92 10/15/16 04:00 97.7 88 20 140/81 97 Room Air 10/15/16 00:00 97.2 92 16 146/90 100 Room Air 10/15/16 00:00 86 10/14/16 20:00 86 10/14/16 20:00 97.3 90 18 130/73 96 Room Air 10/14/16 19:45 96.9 10/14/16 16:00 87 10/14/16 16:00 96.9 94 17 131/87 98 Room Air 10/14/16 13:25 96.8 76 18 139/69 97 Room Air 10/14/16 12:18 83 10/14/16 12:00 97.6 76 18 139/69 97 Room Air 10/14/16 09:40 81 18 130/69 100 Room Air 10/14/16 09:35 79 18 137/73 100 Room Air 10/14/16 09:30 98.0 80 18 129/65 99 Simple Mask 5.0 10/14/16 09:26 86 20 97 10/14/16 09:25 90 20 99 Intake and Output 10/14/16 10/15/16 19:00 07:00 Intake Total 1122 ml 1263 ml Balance 1122 ml 1263 ml Intake Oral 450 ml 360 ml IV Total 672 ml 903 ml # Voids 1 3 Height (Feet): 5 Height (Inches): 5.00 Weight (Pounds): 271 Objective GENERAL: Alert, awake, and oriented x3. HEENT: PERRLA. NECK: Range of motion is full in all directions. No tenderness of paracervical muscles. No adenopathy. LUNGS: Clear. HEART: Regular. ABDOMEN: Tenderness to palpation. BACK: Range of motion is reduced due to patient's pain and condition with no tenderness to paraspinal muscles and trapezial muscles EXTREMITIES: No cyanosis. No clubbing. No edema. NEURO: No changes. MICHEL KRUEGER Oct 15, 2016 09:26
[2016-10-15] MEDS ORDERED: traMADol 50mg tab ORAL PRN (09:30)
[2016-10-15 12:00] VITALS: BP 150/75
[2016-10-15] MEDS ORDERED: HYDROmorphone 2 MG in NS 55 ML IVPB PRN (12:31)
--- NOTE | 2016-10-15 14:07 | Infectious Diseases Prog Note ---
Assessment/Plan Problems: (1) Hematemesis Assessment & Plan: had EGD, showed gastritis , with biopsy . continue ppi, no need for prophylactic antibiotics since she dosen't have liver cirrhosis , blood culture remained negative (2) Anemia Assessment & Plan: due to hematamasis , monitor H/H transfuse blood as needed (3) Pain Assessment & Plan: continue pain management as per primary Subjective Constitutional: Reports: no symptoms HEENT: Reports: no symptoms Respiratory: Reports: no symptoms Breasts: Reports: no symptoms Cardiovascular: Reports: no symptoms Gastrointestinal/Abdominal: Reports: no symptoms Genitourinary: Reports: no symptoms Neurologic: Reports: no symptoms Skin: Reports: no symptoms Allergies: Coded Allergies: ASPIRIN (Verified Allergy, Unknown, 10/13/16) IBUPROFEN (Verified Allergy, Unknown, 10/13/16) KETOROLAC (Verified Allergy, Unknown, 10/13/16) NSAIDS (NON-STEROIDAL ANTI-INFLAMMA (Verified Allergy, Unknown, 10/12/16) PENICILLINS (Verified Allergy, Unknown, 10/13/16) SHELLFISH DERIVED (Verified Allergy, Unknown, 10/13/16) Objective Vital Signs Last 24 Hour Vital Signs Date Time Temp Pulse Resp B/P Pulse Ox O2 Delivery O2 Flow Rate FiO2 10/15/16 12:00 97.7 68 20 150/75 100 Room Air 10/15/16 08:00 97.3 82 20 125/66 100 Room Air 10/15/16 04:00 92 10/15/16 04:00 97.7 88 20 140/81 97 Room Air 10/15/16 00:00 97.2 92 16 146/90 100 Room Air 10/15/16 00:00 86 10/14/16 20:00 86 10/14/16 20:00 97.3 90 18 130/73 96 Room Air 10/14/16 19:45 96.9 10/14/16 16:00 87 10/14/16 16:00 96.9 94 17 131/87 98 Room Air Height (Feet): 5 Height (Inches): 5.00 Weight (Pounds): 271 General Appearance: WD/WN, no acute distress HEENT: normocephalic, atraumatic, anicteric, mucous membranes moist, PERRL Respiratory/Chest: chest wall non-tender, lungs clear, normal breath sounds, no respiratory distress Cardiovascular: normal peripheral pulses, normal rate, regular rhythm, no JVD Abdomen: normal bowel sounds, soft, non tender, no organomegaly, non distended , no mass, no scars Extremities: no cyanosis, no clubbing Skin: no rash, no lesions, no ulcers Microbiology Date/Time Source Procedure Growth Status 10/13/16 10:25 Blood Blood Culture - Preliminary NO GROWTH AFTER 24 HOURS Resulted Current Medications Medications (Trade) Dose Ordered Sig/Cleopatra Route PRN Reason Start Time Stop Time Status Last Admin Dose Admin Acetaminophen (Tylenol) 650 mg Q4H PRN ORAL Mild Pain/Temp > 100.5 10/13/16 08:00 11/12/16 07:59 Clonazepam (KlonoPIN) 0.5 mg QHS ORAL 10/14/16 21:00 10/21/16 20:59 10/14/16 20:32 Lorazepam (Ativan) 1 mg Q6H PRN ORAL For Anxiety 10/13/16 19:45 10/20/16 19:44 10/15/16 07:45 Mirtazapine (Remeron) 7.5 mg BEDTIME ORAL 10/14/16 21:00 11/13/16 20:59 10/14/16 20:32 Ondansetron HCl 4 mg 4 mg Q6H PRN IVP Nausea & Vomiting 10/13/16 08:00 11/12/16 07:59 Pantoprazole (Protonix) 40 mg EVERY 12 HOURS IVP 10/13/16 21:00 11/12/16 20:59 10/15/16 08:35 Sodium Chloride (0.45% NS 1000ml) 1,000 ml @ 70 mls/hr [id number] IV 10/13/16 08:00 11/12/16 07:59 10/15/16 04:36 Tramadol HCl (Ultram) 50 mg Q4H PRN ORAL moderate pain 10/15/16 09:30 10/22/16 09:29 Geoffrey Pope M.D. Oct 15, 2016 14:07
[2016-10-15 16:00] VITALS: BP 125/101
[2016-10-15] MEDS ORDERED: NS 275ml ONE (16:39)
[2016-10-15] MEDS ORDERED: Tubing IV Secondary IV ONE (16:39)
[2016-10-15] MEDS ORDERED: 1/2 NS 1000ml IV ONE ×2 (16:39)
[2016-10-15] MEDS ORDERED: D5 1/2NS 1000ml IV ONE (16:39)
--- NOTE | 2016-10-15 19:33 | General Progress Note ---
Assessment/Plan Assessment/Plan Assessment - Resolved UGIB - gastritis Recommendations - push po - PPI - d/c planning Subjective Allergies: Coded Allergies: ASPIRIN (Verified Allergy, Unknown, 10/13/16) IBUPROFEN (Verified Allergy, Unknown, 10/13/16) KETOROLAC (Verified Allergy, Unknown, 10/13/16) NSAIDS (NON-STEROIDAL ANTI-INFLAMMA (Verified Allergy, Unknown, 10/12/16) PENICILLINS (Verified Allergy, Unknown, 10/13/16) SHELLFISH DERIVED (Verified Allergy, Unknown, 10/13/16) Subjective Feels OK no further N/V or bleeding Objective Last 24 Hour Vital Signs Date Time Temp Pulse Resp B/P Pulse Ox O2 Delivery O2 Flow Rate FiO2 10/15/16 16:00 97.5 81 20 125/101 93 Room Air 10/15/16 12:00 97.7 68 20 150/75 100 Room Air 10/15/16 12:00 92 10/15/16 08:00 97.3 82 20 125/66 100 Room Air 10/15/16 07:33 74 10/15/16 04:00 92 10/15/16 04:00 97.7 88 20 140/81 97 Room Air 10/15/16 00:00 97.2 92 16 146/90 100 Room Air 10/15/16 00:00 86 10/14/16 20:00 86 10/14/16 20:00 97.3 90 18 130/73 96 Room Air 10/14/16 19:45 96.9 Intake and Output 10/14/16 10/15/16 19:00 07:00 Intake Total 1122 ml 1263 ml Balance 1122 ml 1263 ml Intake Oral 450 ml 360 ml IV Total 672 ml 903 ml # Voids 1 3 Height (Feet): 5 Height (Inches): 5.00 Weight (Pounds): 271 Objective obese NCAT supple CTA RRR Soft NT ND no edema CHARISMA WORLEY Oct 15, 2016 19:32
--- NOTE | 2016-10-15 23:27 | Consultation ---
DATE OF CONSULTATION: 10/15/2016 HISTORY OF PRESENT ILLNESS: This is a 40-year-old obese -[place] female with a history of depression and anxiety disorder, who has been admitted to the hospital for medical stabilization. The patient apparently had GI bleed and during this, she has had a coffee-ground emesis that had changed to bright red. Psychiatry was consulted, as the patient presented with anxiety. During the evaluation, the patient appeared to be calm. She complained of severe anxiety and insomnia, stated that she recently lost her grandson who was a [id number] due to asthma, however, she also stated the grandson was in a system and he was killed apparently. She also recently lost her father, complaining of depressed mood, anhedonia, insomnia, severe anxiety, and poor insight and judgment. PAST PSYCHIATRIC HISTORY: She has been treated with Ativan and Ambien. PAST MEDICAL HISTORY: Obesity, GI bleeding, anemia, and pain syndrome. ALLERGIES: Aspirin, ibuprofen, ketorolac, NSAIDs, penicillin, and shellfish. 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 She requested for lorazepam IM when she appeared not to be anxious. MENTAL STATUS EXAMINATION: The patient is oriented x4. Mood is neutral. Affect is blunted and congruent with mood. Thought process is concrete. Thought content, no suicidal or homicidal ideations. ASSESSMENT: 1. Anxiety. 2. Depression. PLAN: 1. The patient will be continued on current medication. 2. We will change Ativan to clonidine. 3. We will start the patient on Remeron 7.5 mg at bedtime. 4. Clonidine 0.5 mg at bedtime. 5. We will continue to follow and readjust the medication. Luis Alberto Watson M.D. DR: ILEANA JOB#: [id number] CC:
[2016-10-18] MEDS ORDERED: PROTONIX40 MG ORAL (07:58)
[2016-10-18] MEDS ORDERED: MIRTAZAPINE15 MG ORAL (08:04)
--- NOTE | 2016-10-18 08:05 | Discharge Summary ---
Discharge Summary Hospital Course Date of Admission Oct 13, 2016 at 01:46 Date of Discharge Oct 15, 2016 at 16:40 Admitting Diagnosis Upper GI Bleeding SHERON Marie is a 40 year old female who was admitted on Oct 13, 2016 at 01:46 for Upper Gastrointestinal Bleeding Hospital Course dc summary #[id number] Discharge Medications New Medications: Mirtazapine* (Remeron*) 15 Mg Tablet 7.5 MG ORAL BEDTIME, #30 TAB Pantoprazole* (Protonix*) 40 Mg Tablet.dr 40 MG ORAL DAILY, #30 TAB Continued Medications: Zolpidem Tartrate* (Ambien*) 10 Mg Tablet 10 MG ORAL HS PRN for Insomnia, TAB Discharge Condition Upon Discharge: stable Discharge Disposition Patient was discharged to Home () Discharge Diagnoses: Discharge Instructions Discharge Instructions Special Instructions I have been assigned to complete a D/C Summary on this account. I was not involved in the patient management Kaur Schwartz NP ([place]tein) Oct 18, 2016 08:05
--- NOTE | 2016-10-18 08:48 | Discharge Summary 2 SIG ---
DATE OF ADMISSION: 10/13/2016 DATE OF DISCHARGE: 10/15/2016 REASON FOR ADMISSION: The patient is a 40-year-old female, came to the emergency room because of the hematemesis, initially with a coffee-ground emesis was changed to the bright red. The patient has a prior history of anemia, fibroids, and tubal ligation. Workup in the emergency room revealed anemia with hemoglobin of 10.6 and hematocrit 35.1. The rest of the labs were stable. Urinalysis negative. No leukocytosis. Electrolytes, LFT, lipase, and renal parameters were all within normal limits. The patient was afebrile. Vital signs stable. The patient admitted for further management. ADMITTING DIAGNOSES: 1. Upper gastrointestinal bleeding. 2. Anemia. HOSPITAL STAY: The patient was admitted. GI consult was requested. Subsequently, the patient was undergone upper endoscopy with biopsy. The patient found to have gastritis. The patient was placed on PPI. Diet was resumed. Recommended to avoid nonsteroid anti-inflammatory drugs. Awaiting biopsy results. Stool OB was positive. Recommended colonoscopy as outpatient. Processing Supervisor follow. Anemia workup was done. Stable iron. Stable folate. Reticulocyte within normal limits. Per Hematology, anemia secondary to GI bleeding as well as anemia of chronic disease. Pain was addressed. The patient has intractable abdominal pain initially. Pain specialist was consulted. The patient was addicted to benzodiazepine as well as Dilaudid, dose were stopped. The patient started on tramadol. Pain controlled. Psychiatrist seen the patient, diagnosed her with anxiety and depression and optimized her medication regimen in terms of anxiety and depression. The patient was stable for discharge. Follow up with the primary medical doctor. Upper GI bleeding, resolved. Continue PPI. DISCHARGE DIAGNOSES: 1. Upper gastrointestinal bleeding, resolved. 2. Anemia secondary to upper gastrointestinal bleeding as well as anemia of chronic disease. 3. Status post esophagogastroduodenoscopy with biopsy . 4. Gastritis. 5. Intractable abdominal pain. 6. Anxiety. 7. Depression . DISCHARGE MEDICATIONS: See medication reconciliation list. DISCHARGE INSTRUCTIONS: The patient discharged home. Follow up with the primary medical doctor. Continue PPI. Avoid nonsteroid anti-inflammatory drugs. Recommended colonoscopy as outpatient. Ali Hadadz, M.D. I have been assigned to dictate discharge summary on this account and I was not involved in the patient's management. Kaur trevinoDavid faustin DR: Yolanda JOB#: [id number] CC:
== END 2016-10-15 16:40 | disposition home or self-care (01) | DRG 378 ==
LOC: EMR 23:45 → 2E 10-13 01:46 → EDBEDREQ 10-13 02:10
PROC: 0DB68ZX Excision of Stomach, Via Natural or Artificial Opening Endoscopic, Diagnostic (ICD-10-PCS; principal; 2016-10-14 09:08)
DX: K92.2 Gastrointestinal hemorrhage, unspecified (principal); D62 Acute posthemorrhagic anemia; Z68.42 Body mass index [BMI] 45.0-49.9, adult; F32.9 Major depressive disorder, single episode, unspecified; D63.8 Anemia in other chronic diseases classified elsewhere; K29.70 Gastritis, unspecified, without bleeding; R10.9 Unspecified abdominal pain; F41.9 Anxiety disorder, unspecified; K21.9 Gastro-esophageal reflux disease without esophagitis; E66.9 Obesity, unspecified; Z88.6 Allergy status to analgesic agent; Z88.0 Allergy status to penicillin; G47.00 Insomnia, unspecified
CPT/HCPCS: 36415; 71010; 80053; 81003; 82270; 82728; 82746; 83540; 83550; 83690; 85007; 85025; 85044; 85060; 85610; 85730; 86850; 86900; 86901; 87040; 93005; 94003; 94150; J2405